=== PATIENT | female | born 1950 | race Caucasian/White ===

== ENCOUNTER → 2018-06-28 | Outpatient (CLI) | payer OTHER | LOC: US 07:27 | DX: I70.0 Atherosclerosis of aorta (principal); I70.8 Atherosclerosis of other arteries; I71.4 Abdominal aortic aneurysm, without rupture; I12.9 Hypertensive chronic kidney disease with stage 1 through stage 4 chronic kidney disease, or unspecified chronic kidney disease; N18.3 Chronic kidney disease, stage 3 (moderate); R07.9 Chest pain, unspecified; I74.4 Embolism and thrombosis of arteries of extremities, unspecified ==

== ENCOUNTER → 2018-08-05 | Outpatient (CLI) | payer OTHER ==
[2018-08-05 13:17] LABS: BASO # 0.1 10*3/uL (0.0-0.1); BASO % 0.8 % (0.0-1.0); EOS # 0.3 10*3/uL (0.0-0.4); EOS % 3.1 % (1.0-4.0); HEMOGLOBIN 13.4 g/dl (12.0-16.0); LYMPH % 23.8 % (27.0-41.0); MEAN CELL VOLUME 89.6 fl (81.0-99.0); MEAN CORPUSCULAR HGB 28.6 pg (27.0-31.0); MEAN CORPUSCULAR HGB CONC 31.9 g/dl (33.0-37.0); MEAN PLATELET VOLUME 8.8 fl (9.6-12.3); MONO # 0.8 10*3/uL (0.1-1.0); MONO % 9.6 % (3.0-9.0); NEUT # 5.3 10*3/uL (2.3-7.9); NEUT % 62.6 % (47.0-73.0); PLATELET COUNT AUTOMATED 517 10*3/uL (130-400); RED BLOOD COUNT 4.69 10*6/uL (4.10-5.10); RED CELL DISTRI WIDTH 13.2 % (0-14.5); WHITE BLOOD COUNT 8.5 10*3/uL (4.8-10.8)
[2018-08-05 13:34] LABS: BILIRUBIN NEGATIVE (NEGATIVE); BLOOD NEGATIVE (NEGATIVE); CLARITY SL CLOUDY (CLEAR); COLOR YELLOW (YELLOW); GLUCOSE NEGATIVE (NEGATIVE); KETONE NEGATIVE (NEGATIVE); LEUKO ESTERASE 2+ (NEGATIVE); NITRITE NEGATIVE (NEGATIVE); SPECIFIC GRAVITY 1.015 (1.005-1.030); UROBILINOGEN 0.2 E.U./dl (0.2-1.0)
[2018-08-05 13:44] LABS: BACTERIA 2+; EPITHELIAL CELLS 21-30; WBC 41-50 wbc/hpf (0-5)
[2018-08-05 13:47] LABS: CREATININE 1.13 mg/dL (0.55-1.02); PHOSPHOROUS 3.9 mg/dL (2.5-4.9); POTASSIUM 3.4 mmol/L (3.5-5.1); URIC ACID 7.4 mg/dL (2.6-6.0)
[2018-08-05 14:18] LABS: VITAMIN D, 25-HYDROXY 19.8 ng/mL (30-100)
[2018-08-05 14:19] LABS: PTH INTACT 146.5 pg/mL (18.5-88.0)
[2018-08-06 07:05] LABS: CREATININE,URINE 201.3 mg/dL (Not Estab.)
[2018-08-06 09:08] LABS: COMPLEMENT C4 001834 20 mg/dL (14-44)
[2018-08-07 14:06] LABS: ANTI-DSDNA ANTIBODIES 096339 2 IU/mL (0-9)
== END | disposition home or self-care (01) ==
LOC: LAB 12:41
PROVIDERS: Internal Medicine Nephrology
DX: I12.9 Hypertensive chronic kidney disease with stage 1 through stage 4 chronic kidney disease, or unspecified chronic kidney disease (principal); N18.3 Chronic kidney disease, stage 3 (moderate); N25.81 Secondary hyperparathyroidism of renal origin; E87.70 Fluid overload, unspecified; R80.9 Proteinuria, unspecified; E55.9 Vitamin D deficiency, unspecified